=== PATIENT | male | born 1975 | race Caucasian/White ===

== ENCOUNTER 2023-11-04 15:51 | Emergency (ER) | payer SELFPAY ==
--- NOTE | 2023-11-04 15:52 | ED.URI ---
HPI - URI/Sore Throat General Chief Complaint: Upper Respiratory Infection Stated Complaint: congestion Time Seen by Provider: 11/04/23 15:52 Source: patient Mode of arrival: ambulatory Limitations: no limitations History of Present Illness HPI Narrative: Dane is a 48 year old male patient presenting to the clinic today with c/o nasal congestion, sore throat, headache, and cough x2 days. He reports no known fever or chills. Denies any shortness of breath chest pain. Just got back in town from [place]. MD elicited complaint: sore throat and nasal congestion Related Data Home Medications Medication Instructions Recorded Confirmed rosuvastatin 20 mg tablet 20 mg PO HS 11/04/23 11/04/23 semaglutide 14 mg tablet (Rybelsus) 14 mg PO DAILY 11/04/23 11/04/23 Allergies Allergy/AdvReac Type Severity Reaction Status Date / Time Sulfa (Sulfonamide AdvReac Mild RASH Verified 11/04/23 15:54 Antibiotics) Review of Systems Review of Systems: Pertinent positives per HPI. Patient denies any fever, chills, rash, headache, visual changes, dizziness, cough, shortness of breath, chest pain, palpitations, nausea, vomiting, diarrhea, constipation, abdominal pain, or any urinary issues. [facility] Past Medical History Medical History Anxiety HTN (hypertension), benign LLQ pain Obesity, morbid, BMI 40.0-49.9 Social History Social History Smoking status: Never smoker Alcohol intake: current Drinks per week: 1 Substance use: never Comments At the time of my signature, I reviewed and agree with the nursing past medical, surgical, social, and family history. There is no relevant family history pertinent to the patient complaint. Exam Narrative: General: Well-developed, obese, in no apparent distress Head: Normocephalic, atraumatic Eyes: Pupils equally round and reactive to light bilaterally, EOM intact, sclera and conjunctive clear, no discharge, lids normal Ears: TMs intact and clear, ear canals clear, no drainage, grossly hearing normal. Nose: Nares patent, clear nasal discharge, no inflammation, no sinus tenderness. Mouth: Oral pharynx without lesions or masses, good dentition, MMM. Postnasal drip Neck: Supple, trachea midline, no enlargement of anterior or posterior cervical nodes, no thyroid masses or goiter palpable. Cardio: Regular rate and rhythm, s1 and s2 normal, no murmur appreciated. Resp: Clear to auscultation bilaterally, no rhonchi, rales, wheezing or rubs Course Course Emergency Course: Portions of this record may have been created with voice recognition software. Level of Care: Express Care Visit Vital Signs Vital signs: Vital Signs Temperature 36.4 C 11/04/23 16:05 Pulse Rate 86 11/04/23 16:05 Respiratory Rate 18 11/04/23 16:05 Blood Pressure 133/83 11/04/23 16:05 Pulse Oximetry 98 11/04/23 16:05 Oxygen Delivery Room Air 11/04/23 16:05 Temperature 36.4 C 11/04/23 16:05 Pulse Rate 86 11/04/23 16:05 Respiratory Rate 18 11/04/23 16:05 Blood Pressure 133/83 11/04/23 16:05 Pulse Oximetry 98 11/04/23 16:05 Oxygen Delivery Room Air 11/04/23 16:05 Vital signs reviewed MDM - URI/Sore Throat MDM Narrative Medical decision making narrative: At the time of visit patient is resting comfortably on the exam table. Patient appears to be nontoxic. Labs: COVID test was positive in the clinic today. Plan: I suspect patient has COVID. Supportive measures were discussed with the patient and they voiced understanding discharge instructions and agrees to treatment plan. Return precautions reviewed Differential Diagnosis Differential diagnosis: Likely upper respiratory infection, otitis media, sinusitis, viral infection, bronchitis, influenza, pharyngitis and other Discharge Plan Discharge Clinical Impression: COVID-19
[2023-11-04 16:05] VITALS: BP 133/83; PULSE 86; RESP 18; TEMP 36.4; O2SAT 98
== END 2023-11-04 16:10 | disposition home or self-care (01) ==
LOC: EXPTROY 15:56
PROVIDERS: Emergency Provider Nurse Practitioner Family; PCP Family Medicine
DX: U07.1 COVID-19 (principal); I10 Essential (primary) hypertension; E66.01 Morbid (severe) obesity due to excess calories; Z68.38 Body mass index [BMI] 38.0-38.9, adult
CPT/HCPCS: 87426; 99212; G0463